=== PATIENT | female | born 1985 | race African-American/Black ===

== ENCOUNTER 2018-02-18 15:25 | Emergency (ER) | payer OTHER ==
[~2018-02-18] VITALS: Ht 170.2 cm; Wt 68.6 kg
[2018-02-18 15:48] VITALS: BP 122/67
[2018-02-18] MEDS ORDERED: PNV1TABL25 PO (15:48)
[2018-02-18] MEDS ORDERED: ONDA4TAB12 PO (16:08)
--- NOTE | 2018-02-18 16:09 | PHYS DOC ---
Past Medical History Past Medical History: No Pertinent History Past Surgical History: Other Additional Past Surgical Histo: breast augmentation Alcohol Use: None Drug Use: None Adult General Chief Complaint Chief Complaint: VOMITING IN HPI HPI Patient is a 32 year old female who presents with shoulder weeks and sees her doctor on 04 March. Patient states that she has nausea and heartburn. Patient states she's only vomited once last 24 hours and she did have 1 bout of diarrhea after eating some postural last night. Patient states she is holding down fluids and food just fine. Patient states she's "just miserable with the nausea and the heartburn". Review of Systems Review of Systems Constitutional: Denies fever or chills [] Eyes: Denies change in visual acuity, redness, or eye pain [] HENT: Denies nasal congestion or sore throat [] Respiratory: Denies cough or shortness of breath [] Cardiovascular: No additional information not addressed in HPI [] GI: Denies abdominal pain. + nausea,+ vomiting, denies bloody stools or diarrhea [] : Denies dysuria or hematuria [] Musculoskeletal: Denies back pain or joint pain [] Integument: Denies rash or skin lesions [] Neurologic: Denies headache, focal weakness or sensory changes [] All other systems were reviewed and found to be within normal limits, except as documented in this note. Current Medications Current Medications Current Medications Medications (Trade) Dose Ordered Sig/[facility] Start Time Stop Time Status Last Admin Dose Admin Ondansetron HCl (Zofran Odt) 4 mg 1X ONCE 02/18/18 16:15 02/18/18 16:16 Allergies Allergies Allergies Coded Allergies Type Severity Reaction Last Updated Verified No Known Drug Allergies 02/18/18 No Physical Exam Physical Exam Constitutional: Well developed, well nourished, no acute distress, non-toxic appearance. [] HENT: Normocephalic, atraumatic, bilateral external ears normal, oropharynx moist, no oral exudates, nose normal. [] Eyes: PERRLA, EOMI, conjunctiva normal, no discharge. [] Neck: Normal range of motion, no tenderness, supple, no stridor. [] Cardiovascular:Heart rate regular rhythm, no murmur [] Lungs & Thorax: Bilateral breath sounds clear to auscultation [] Abdomen: Bowel sounds normal, soft, no tenderness, no masses, no pulsatile masses. [] Skin: Warm, dry, no erythema, no rash. [] Back: No tenderness, no CVA tenderness. [] Extremities: No tenderness, no cyanosis, no clubbing, ROM intact, no edema. [] Neurologic: Alert and oriented X 3, normal motor function, normal sensory function, no focal deficits noted. [] Psychologic: Affect normal, judgement normal, mood normal. [] Current Patient Data Vital Signs Vital Signs Date Time Temp Pulse Resp B/P (MAP) Pulse Ox O2 Delivery O2 Flow Rate FiO2 02/18/18 15:48 98.2 100 20 122/67 (85) 100 Room Air 98.2 EKG EKG [] Radiology/Procedures Radiology/Procedures [] Course & Med Decision Making Course & Med Decision Making Patient is a 32 year old female who presents with shoulder weeks and sees her doctor on 04 March. Patient states that she has nausea and heartburn. Patient states she's only vomited once last 24 hours and she did have 1 bout of diarrhea after eating some postural last night. Patient states she is holding down fluids and food just fine. Patient states she's "just miserable with the nausea and the heartburn". Alert and oriented. Skin pink warm and dry. Mucous membranes are moist. Ambulatory with a steady gait. There is no extremity swelling. She denies any vaginal discharge or bleeding. She denies any abdominal pain. Abdomen is soft and nontender. Afebrile. Vital signs are within normal limits. Patient is given 1 Zofran and a prescription for Zofran to follow-up with her primary care doctor. Janet Disclaimer Janet Disclaimer This electronic medical record was generated, in whole or in part, using a voice recognition dictation system. Departure Departure Impression: Primary Impression: Nausea and vomiting in Disposition: HOME, SELF-CARE Condition: STABLE Referrals: UNKNOWN PCP NAME (PCP) Patient Instructions: ABCs of , Diet for Gastroesophageal Reflux Disease, Adult, Nausea and Vomiting Additional Instructions: Follow up with your OB. Take medication as needed. Try using Zantac or Pepcid for heart burn. Scripts Ondansetron (ONDANSETRON ODT) 4 Mg Tab.rapdis 4 MG PO BID PRN for NAUSEA/VOMITING, #20 TAB Prov: PARIS HARRIS RESOURCE SPECIALIST 02/18/18 PARIS HARRIS APRN Feb 18, 2018 16:09
[2018-02-18] MEDS ORDERED: ONDANSETRON ODT 4 MG TAB.RAPDIS. PO ONE (16:15)
== END 2018-02-18 17:23 | disposition home or self-care (01) ==
LOC: ER 15:25
DX: O21.9 Vomiting of pregnancy, unspecified (principal); R19.7 Diarrhea, unspecified; Z3A.11 11 weeks gestation of pregnancy
CPT/HCPCS: 99283; Q0162

== ENCOUNTER 2018-03-04 09:04 | Emergency (ER) | payer MEDICAID, OTHER ==
[~2018-03-04] VITALS: Ht 170.2 cm; Wt 70.3 kg
[~2018-03-04 09:04] MED LIST: ONDA4TAB12 PO; PNV1TABL25 PO
--- NOTE | 2018-03-04 09:29 | PHYS DOC ---
Past Medical History Past Medical History: No Pertinent History Past Surgical History: Other Additional Past Surgical Histo: breast augmentation Alcohol Use: None Drug Use: None Adult General Chief Complaint Chief Complaint: VOMITING IN [facility] HPI Patient is a 32 year old female with no significant medical history who presents today complaining of nausea and vomiting in . Patient states she doesn't know how far along she is but may be 13 weeks . She's been nauseated for couple days, she states she also been vomiting. She states she called her own PCP to get nausea medicine, she states they told her she has to be seen first before they can write her any medicines for her nausea or vomiting. She states they did not have any appointments today, she states she fired the PCP and will follow up with [facility]. She is requesting nausea medication, she is also requesting an ultrasound to find out how far along she is. Patient denies any abdominal pain, denies any vaginal bleeding. Review of Systems Review of Systems Constitutional: Denies fever or chills [] Eyes: Denies change in visual acuity, redness, or eye pain [] HENT: Denies nasal congestion or sore throat [] Respiratory: Denies cough or shortness of breath [] Cardiovascular: No additional information not addressed in HPI [] GI: Denies abdominal pain, nausea, vomiting, bloody stools or diarrhea [] : Denies dysuria or hematuria [] Musculoskeletal: Denies back pain or joint pain [] Integument: Denies rash or skin lesions [] Neurologic: Denies headache, focal weakness or sensory changes [] Endocrine: Denies polyuria or polydipsia [] All other systems were reviewed and found to be within normal limits, except as documented in this note. Current Medications Current Medications Current Medications Medications (Trade) Dose Ordered Sig/[facility] Start Time Stop Time Status Last Admin Dose Admin Ondansetron HCl (Zofran Odt) 4 mg 1X ONCE 03/04/18 10:00 03/04/18 10:01 DC 03/04/18 09:32 4 MG Allergies Allergies Allergies Coded Allergies Type Severity Reaction Last Updated Verified No Known Drug Allergies 02/18/18 No Physical Exam Physical Exam Constitutional: Well developed, well nourished, no acute distress, non-toxic appearance. [] HENT: Normocephalic, atraumatic, bilateral external ears normal, oropharynx moist, no oral exudates, nose normal. [] Eyes: PERRLA, EOMI, conjunctiva normal, no discharge. [] Neck: Normal range of motion, no tenderness, supple, no stridor. [] Cardiovascular:Heart rate regular rhythm, no murmur [] Lungs & Thorax: Bilateral breath sounds clear to auscultation [] Abdomen: Bowel sounds normal, soft, no tenderness, no masses, no pulsatile masses. [] Skin: Warm, dry, no erythema, no rash. [] Back: No tenderness, no CVA tenderness. [] Extremities: No tenderness, no cyanosis, no clubbing, ROM intact, no edema. [] Neurologic: Alert and oriented X 3, normal motor function, normal sensory function, no focal deficits noted. [] Psychologic: Affect normal, judgement normal, mood normal. [] Current Patient Data Vital Signs Vital Signs Date Time Temp Pulse Resp B/P (MAP) Pulse Ox O2 Delivery O2 Flow Rate FiO2 03/04/18 09:25 98.1 86 18 105/55 (72) 99 Room Air 98.1 Lab Values Laboratory Tests Test 03/04/18 09:10 03/04/18 09:24 Urine Collection Type Unknown Urine Color Yellow Urine Clarity Clear Urine pH 7.0 Urine Specific [place] 1.025 Urine Protein Negative mg/dL (NEG-TRACE) Urine Glucose (UA) Negative mg/dL (NEG) Urine Ketones (Stick) Negative mg/dL (NEG) Urine Blood Negative (NEG) Urine Nitrite Negative (NEG) Urine Bilirubin Negative (NEG) Urine Urobilinogen Dipstick 0.2 mg/dL (0.2 mg/dL) Urine Leukocyte Esterase Small (NEG) Urine RBC 0 /HPF (0-2) Urine WBC Occ /HPF (0-4) Urine Squamous Epithelial Cells Mod /LPF Urine Bacteria 0 /HPF (0-FEW) Urine Mucus Marked /LPF POC Urine HCG, Qualitative Hcg positive (Negative) EKG EKG [] Radiology/Procedures Radiology/Procedures []PROCEDURE: OB < 14 WKS EXAM: Obstetrics sonogram. HISTORY: Pain and vomiting. TECHNIQUE: Sonographic imaging of a gravid uterus was performed. COMPARISON: None. FINDINGS: The uterus measures 12.6 x 9.8 x 9.9 cm. There is an intrauterine gestational sac with views. The crown-rump length is 6.5 cm, corresponding with a gestational age of 12 weeks and 6 days. The gestational sac is normal in configuration and amniotic fluid appears grossly normal in volume. The maternal adnexal regions are obscured due to bowel gas. No subchorionic hematoma is seen. The heart rate is 163 bpm. The IVON is 09/10/2018. IMPRESSION: Single intrauterine fetus with an estimated gestational age of 12 weeks and 6 days and heart rate of 163 bpm. Electronically signed by: Arlin Nguyen MD (03/04/2018 10:35 AM) [facility] DICTATED and SIGNED BY: ARLIN NGUYEN MD DATE: 03/04/18 1032 Course & Med Decision Making Course & Med Decision Making Pertinent Labs and Imaging studies reviewed. (See chart for details) This is a 32-year-old female patient presenting to the ED today with nausea and vomiting in . Patient unable to get into the PCPs office where she follows up for OB care. She is also requesting an ultrasound to see how far along she is. OB ultrasound was noted for Single intrauterine fetus with an estimated gestational age of 12 weeks and 6 days and heart rate of 163 bpm. Urine analysis is noted for UTI, discharged with cephalexin. Discharged with promethazine and Compazine for her nausea/ vomiting. She states she tried Zofran before with minimal relief. Dragon Disclaimer Dragon Disclaimer This electronic medical record was generated, in whole or in part, using a voice recognition dictation system. Departure Departure Impression: Primary Impression: Nausea and vomiting in Additional Impression: Urinary tract infection Disposition: 01 HOME, SELF-CARE Condition: STABLE Referrals: UNKNOWN PCP NAME (PCP) RON MALAVE Jr, MD follow up in 1-2 weeks Patient Instructions: Diet - Hyperemesis Gravidarum, Hyperemesis Gravidarum Additional Instructions: You were evaluated in the emergency room for nausea and vomiting in . Please follow-up with your [facility] as soon as you can. We sent you home with Compazine and promethazine, take them as needed for nausea and vomiting. You also have urinary tract infection, please complete you antibiotics. Come back to the ED at any point symptoms worsen. Scripts Prochlorperazine Maleate (Compazine) 10 Mg Tablet 10 MG PO TID PRN for NAUSEA, #60 TAB Prov: MUTUNGA,TEJAL CREATIVE ARTS THERAPIST 03/04/18 Promethazine Hcl (PROMETHAZINE HCL) 25 Mg Tablet 1 TAB PO PRN Q6HRS, #60 TAB Prov: TEJAL YPLE APRN 03/04/18 Cephalexin (CEPHALEXIN) 500 Mg Tablet 1 TAB PO BID, #14 TAB Prov: TEJAL PYLE APRN 03/04/18 Problem Qualifiers Additional Impression: Urinary tract infection Urinary tract infection type: site unspecified Hematuria presence: without hematuria Qualified Codes: N39.0 - Urinary tract infection, site not specified TEJAL PYLE APRN Mar 04, 2018 09:29
[2018-03-04 09:35] LABS: BILIRUBIN,URINE NEGATIVE (NEG); CLARITY,URINE CLEAR; COLOR,URINE YELLOW; NITRITE,URINE NEGATIVE (NEG); PROTEIN,URINE NEGATIVE (NEG-TRACE); UROBILINOGEN,URINE 0.2 mg/dL (0.2 mg/dL)
[2018-03-04 09:47] LABS: RBC,URINE 0 /HPF (0-2)
[2018-03-04 09:48] LABS: BACTERIA,URINE 0 /HPF (0-FEW); SQUAMOUS EPITHELIAL CELL,UR MOD /LPF; WBC,URINE OCC /HPF (0-4)
[2018-03-04] MEDS ORDERED: ONDANSETRON ODT 4 MG TAB.RAPDIS. PO ONE (10:00)
--- NOTE | 2018-03-04 10:39 | RAD ---
EXAM: Obstetrics sonogram. HISTORY: Pain and vomiting. TECHNIQUE: Sonographic imaging of a gravid uterus was performed. COMPARISON: None. FINDINGS: The uterus measures 12.6 x 9.8 x 9.9 cm. There is an intrauterine gestational sac with views. The crown-rump length is 6.5 cm, corresponding with a gestational age of 12 weeks and 6 days. The gestational sac is normal in configuration and amniotic fluid appears grossly normal in volume. The maternal adnexal regions are obscured due to bowel gas. No subchorionic hematoma is seen. The heart rate is 163 bpm. The IVON is 09/10/2018. IMPRESSION: Single intrauterine fetus with an estimated gestational age of 12 weeks and 6 days and heart rate of 163 bpm. Electronically signed by: Arlin Nguyen MD (03/04/2018 10:35 AM) [facility]
[2018-03-04] MEDS ORDERED: CEPH500T PO (10:48)
[2018-03-04] MEDS ORDERED: PROC10TA57 PO (10:48)
[2018-03-04] MEDS ORDERED: PROM25TA10 PO (10:48)
[2018-03-04 11:00] VITALS: BP 101/56
== END 2018-03-04 11:11 | disposition home or self-care (01) ==
LOC: ER 09:04
DX: O23.41 Unspecified infection of urinary tract in pregnancy, first trimester (principal); Z3A.13 13 weeks gestation of pregnancy
CPT/HCPCS: 76801; 81001; 81025; 87086; 99284; Q0162

== ENCOUNTER 2018-05-03 12:39 | Observation (INO) | payer OTHER ==
[~2018-05-03 12:39] MED LIST changes: +CEPH500T PO; +PROC10TA57 PO; +PROM25TA10 PO
[2018-05-03] MEDS ORDERED: IV RINGERS,LACTATED 1000ML 1,000 ML IV SCH (12:57)
[2018-05-03] MEDS ORDERED: MAG HYDROX/ALUMINUM HYD/SIMETH 30 ML ORAL.SUSP PO PRN (13:00)
[2018-05-03] MEDS ORDERED: ACETAMINOPHEN 325 MG TABLET. PO PRN (13:00)
[2018-05-03] MEDS ORDERED: ONDANSETRON PF 4 MG/2 ML VIAL. IV PRN (13:00)
[2018-05-03 13:21] LABS: BILIRUBIN,URINE NEGATIVE (NEG); CLARITY,URINE CLEAR; COLOR,URINE YELLOW; NITRITE,URINE NEGATIVE (NEG); PH,URINE 7.5; PROTEIN,URINE NEGATIVE (NEG-TRACE); UROBILINOGEN,URINE 0.2 mg/dL (0.2 mg/dL)
[2018-05-03 13:24] LABS: RBC,URINE 0 /HPF (0-2); SQUAMOUS EPITHELIAL CELL,UR MOD /LPF; WBC,URINE OCC /HPF (0-4)
[2018-05-03 13:25] LABS: BACTERIA,URINE FEW /HPF (0-FEW)
[2018-05-03 13:26] LABS: AMPHETAMINE/METHAMPHETAMINE NEG (NEG); BARBITURATES NEG (NEG); BENZODIAZEPINES NEG (NEG); CANNABINOIDS NEG (NEG); COCAINE NEG (NEG); METHADONE NEG (NEG); OPIATES NEG (NEG); PHENCYCLIDINE NEG (NEG)
[2018-05-03] MEDS ORDERED: ACETAMINOPHEN 500 MG TABLET PO ONE (13:45)
[2018-05-03 14:26] LABS: BASO % 0 % (0-3); EOS # 0.4 x10^3/uL (0.0-0.7); EOS % 4 % (0-3); HEMATOCRIT 36.2 % (36.0-47.0); HEMOGLOBIN 11.6 g/dL (12.0-15.5); LYMPH % 10 % (24-48); MEAN CORPUSCULAR HEMOGLOBIN 26 pg (25-35); MEAN CORPUSCULAR HGB CONC 32 g/dL (31-37); MEAN CORPUSCULAR VOLUME 81 fL (79-100); MONO # 0.7 x10^3/uL (0.0-1.1); MONO % 7 % (0-9); NEUT # 7.9 x10^3uL (1.8-7.7); NEUT % 79 % (31-73); PLATELET COUNT 369 x10^3/uL (140-400)
[2018-05-03 16:01] LABS: ALBUMIN 2.5 g/dL (3.4-5.0); ALBUMIN/GLOBULIN RATIO 0.6 (1.0-1.7); CALCIUM 8.7 mg/dL (8.5-10.1); CREATININE 0.4 mg/dL (0.6-1.0); GFR 222.4; POTASSIUM 3.4 mmol/L (3.5-5.1); TOTAL BILIRUBIN 0.2 mg/dL (0.2-1.0); TOTAL PROTEIN 6.8 g/dL (6.4-8.2)
[2018-05-03] MEDS ORDERED: BUTALB/APAP/CAFEIN 50/325/40MG TABLET. PO PRN (16:15)
== END 2018-05-03 17:20 | disposition home or self-care (01) ==
LOC: 3 SO LND 12:39
PROVIDERS: ADMIT Obstetrics & Gynecology; ATTEND Obstetrics & Gynecology
DX: O26.892 Other specified pregnancy related conditions, second trimester (principal); R51 Headache; R05 Cough; O99.512 Diseases of the respiratory system complicating pregnancy, second trimester; J40 Bronchitis, not specified as acute or chronic; J00 Acute nasopharyngitis [common cold]; R09.89 Other specified symptoms and signs involving the circulatory and respiratory systems; Z3A.21 21 weeks gestation of pregnancy
CPT/HCPCS: 36415; 80053; 80307; 81001; 85025; G0378; G0379

== ENCOUNTER 2018-06-01 09:06 | Observation (INO) | payer OTHER ==
[2018-06-01] MEDS ORDERED: ACETAMINOPHEN 325 MG TABLET. PO PRN (09:15)
[2018-06-01] MEDS ORDERED: IV RINGERS,LACTATED 1000ML 1,000 ML IV PRN (09:15)
[2018-06-01] MEDS ORDERED: ONDANSETRON PF 4 MG/2 ML VIAL. IV PRN (09:15)
[2018-06-01] MEDS ORDERED: MAG HYDROX/ALUMINUM HYD/SIMETH 30 ML ORAL.SUSP PO PRN (09:15)
[2018-06-01 09:48] LABS: BILIRUBIN,URINE NEGATIVE (NEG); CLARITY,URINE CLEAR; COLOR,URINE YELLOW; NITRITE,URINE NEGATIVE (NEG); PROTEIN,URINE 30 mg/dL (NEG-TRACE)
[2018-06-01 10:04] LABS: BACTERIA,URINE FEW /HPF (0-FEW); RBC,URINE OCC /HPF (0-2); WBC,URINE OCC /HPF (0-4)
[2018-06-01 10:05] LABS: SQUAMOUS EPITHELIAL CELL,UR MOD /LPF
[2018-06-01 11:09] LABS: POTASSIUM 4.3 mmol/L (3.5-5.1)
[2018-06-01 12:10] LABS: BASO # 0.1 x10^3/uL (0.0-0.2); BASO % 1 % (0-3); EOS # 0.1 x10^3/uL (0.0-0.7); EOS % 1 % (0-3); HEMATOCRIT 31.4 % (36.0-47.0); HEMOGLOBIN 10.2 g/dL (12.0-15.5); LYMPH # 0.8 x10^3/uL (1.0-4.8); LYMPH % 10 % (24-48); MEAN CORPUSCULAR HEMOGLOBIN 26 pg (25-35); MEAN CORPUSCULAR HGB CONC 32 g/dL (31-37); MEAN CORPUSCULAR VOLUME 81 fL (79-100); MONO # 0.5 x10^3/uL (0.0-1.1); MONO % 7 % (0-9); NEUT # 6.6 x10^3uL (1.8-7.7); NEUT % 82 % (31-73); PLATELET COUNT 334 x10^3/uL (140-400); RED BLOOD COUNT 3.88 x10^6/uL (3.50-5.40); RED CELL DISTRIBUTION WIDTH 16.6 % (11.5-14.5); WHITE BLOOD COUNT 8.1 x10^3/uL (4.0-11.0)
== END 2018-06-01 13:43 | disposition home or self-care (01) ==
LOC: 3 SO LND 09:06
PROVIDERS: ADMIT Obstetrics & Gynecology; ATTEND Obstetrics & Gynecology
DX: O21.2 Late vomiting of pregnancy (principal); O26.892 Other specified pregnancy related conditions, second trimester; R42 Dizziness and giddiness; R10.9 Unspecified abdominal pain; Z3A.25 25 weeks gestation of pregnancy
CPT/HCPCS: 36415; 80051; 81001; 85025; 96361; 96374; G0378; G0379; J2405; J7120

== ENCOUNTER 2018-06-09 17:12 | Observation (INO) | payer OTHER ==
[2018-06-09] MEDS ORDERED: IV RINGERS,LACTATED 1000ML 1,000 ML IV SCH (17:29)
[2018-06-09 17:44] LABS: BILIRUBIN,URINE NEGATIVE (NEG); CLARITY,URINE CLEAR; COLOR,URINE YELLOW; NITRITE,URINE NEGATIVE (NEG); PH,URINE 6.5; PROTEIN,URINE NEGATIVE (NEG-TRACE)
[2018-06-09 17:57] LABS: BACTERIA,URINE 0 /HPF (0-FEW); RBC,URINE 0 /HPF (0-2); SQUAMOUS EPITHELIAL CELL,UR MOD /LPF; WBC,URINE 0 /HPF (0-4)
== END 2018-06-09 18:40 | disposition home or self-care (01) ==
LOC: 3 SO LND 17:12
PROVIDERS: ADMIT Obstetrics & Gynecology; ATTEND Obstetrics & Gynecology
DX: O62.9 Abnormality of forces of labor, unspecified (principal); O21.2 Late vomiting of pregnancy; Z3A.26 26 weeks gestation of pregnancy
CPT/HCPCS: 81001; G0379

== ENCOUNTER 2018-10-06 12:26 | Emergency (ER) | payer MEDICAID, OTHER ==
[~2018-10-06] VITALS: Ht 170.2 cm; Wt 72.6 kg
--- NOTE | 2018-10-06 12:52 | RAD ---
3 view study of the third digit right hand Clinical indications: Injury and pain and swelling. FINDINGS: Dorsal soft tissue swelling is seen in the region of the DIP joint and distal phalanx. No radio-opaque foreign body is seen. No acute fracture or dislocation or lytic process evident. IMPRESSION: No acute fracture. Electronically signed by: Teddy Garcia MD (10/06/2018 12:49 PM) [id number]
[2018-10-06 13:05] VITALS: BP 115/72
--- NOTE | 2018-10-06 13:23 | PHYS DOC ---
Past Medical History Past Medical History: No Pertinent History Past Surgical History: Other Additional Past Surgical Histo: breast augmentation Alcohol Use: None Drug Use: None Adult General Chief Complaint Chief Complaint: FINGER INJURY HPI HPI Patient is a 32 year old female who presents with right middle finger injury, patient states she got to the right middle finger pinched in a car seat on Thursday. She states this morning she woke up on the finger is swollen. Review of Systems Review of Systems Constitutional: Denies fever or chills [] Musculoskeletal: Denies back pain or joint pain [] Integument: Reports right middle finger injury Neurologic: Denies headache, focal weakness or sensory changes [] All other systems were reviewed and found to be within normal limits, except as documented in this note. Allergies Allergies Allergies Coded Allergies Type Severity Reaction Last Updated Verified No Known Drug Allergies 02/18/18 No Physical Exam Physical Exam Constitutional: Well developed, well nourished, no acute distress, non-toxic appearance. [] Skin: Right middle finger nailbed with moderate swelling and erythema consistent with paronychia. There is fluctuance to this region. Full range of motion to the right middle finger. Adequate sensation to the right middle finger. +2 right radial pulse. Cap refill less than 2 seconds the right middle finger Back: No tenderness, no CVA tenderness. [] Extremities: No tenderness, no cyanosis, no clubbing, ROM intact, no edema. [] Neurologic: Alert and oriented X 3, normal motor function, normal sensory function, no focal deficits noted. [] Psychologic: Affect normal, judgement normal, mood normal. [] Current Patient Data Vital Signs Vital Signs Date Time Temp Pulse Resp B/P (MAP) Pulse Ox O2 Delivery O2 Flow Rate FiO2 10/06/18 13:05 97.7 78 16 115/72 (86) 99 Room Air 97.7 EKG EKG [] Radiology/Procedures Radiology/Procedures []PROCEDURE: FINGER(S) RIGHT 3 view study of the third digit right hand Clinical indications: Injury and pain and swelling. FINDINGS: Dorsal soft tissue swelling is seen in the region of the DIP joint and distal phalanx. No radio-opaque foreign body is seen. No acute fracture or dislocation or lytic process evident. IMPRESSION: No acute fracture. Electronically signed by: Robert Garcia MD (10/06/2018 12:49 PM) [id number] DICTATED and SIGNED BY: ROBERT GARCIA MD DATE: 10/06/18 1249 Indication: Paronychia right middle finger Procedure: The patient was positioned appropriately. Local anesthesia was not applicable. An incision was then made over the apex of the lesion with an 11 blade and moderate amount of yellow bloody material was expressed. The drainage cavity was irrigated and covered with sterile gauze. The patient�s tetanus status updated as needed. The patient tolerated the procedure well. Complications: none. Course & Med Decision Making Course & Med Decision Making Pertinent Labs and Imaging studies reviewed. (See chart for details) This is a 32-year-old female patient who presents to the ED today with paronychia of the right middle finger that began after she pinched her right middle finger in a car seat. Right middle finger x-rays interpreted by radiologist are negative for any acute findings. Paronychia was drained by me as noted in procedures. Tetanus is up-to-date. Patient is breast-feeding. Discharged with cephalexin. Wound care instructions and return precautions provided. Dragon Disclaimer Dragon Disclaimer This electronic medical record was generated, in whole or in part, using a voice recognition dictation system. Departure Departure Impression: Primary Impression: Paronychia of right middle finger Disposition: 01 HOME, SELF-CARE Condition: STABLE Referrals: UNKNOWN PCP NAME (PCP) follow up with your doctor in 1-2 weeks Patient Instructions: Paronychia, [id number] Additional Instructions: You have right middle finger infection, as discussed consider removing the nail japanese from the right middle finger. Soak the right middle finger in Warm water with Epsom salts twice a day. Complete the prescribed antibiotics. Follow-up with your own doctor in 1-2 weeks. Scripts Cephalexin (CEPHALEXIN) 500 Mg Capsule 1 CAP PO TID, #30 CAP Prov: TEJAL PYLE APRN 10/06/18 TEJAL PYLE APRN Oct 06, 2018 13:23
[2018-10-06] MEDS ORDERED: CEPH500C PO (13:31)
== END 2018-10-06 13:55 | disposition home or self-care (01) ==
LOC: ER 12:26
DX: L03.011 Cellulitis of right finger (principal)
CPT/HCPCS: 10060; 73140; 99283; 99284

== ENCOUNTER 2021-02-04 09:05 | Emergency (ER) | payer MEDICAID ==
[~2021-02-04] VITALS: Ht 170.2 cm; Wt 66.8 kg
[~2021-02-04 09:05] MED LIST changes: +CEPH500C PO
[2021-02-04 09:38] VITALS: BP 110/63
[2021-02-04 10:55] LABS: INFLUENZA A PATIENT NEGATIVE (NEGATIVE); INFLUENZA B PATIENT NEGATIVE (NEGATIVE)
--- NOTE | 2021-02-04 11:06 | PHYS DOC ---
Past Medical History Past Medical History: No Pertinent History Past Surgical History: Other Additional Past Surgical Histo: breast augmentation Smoking Status: Never Smoker Alcohol Use: None Drug Use: None General Adult EDM: Chief Complaint: FLU SYMPTOM HPI: HPI: Patient is a 35 year old female without pertinent past medical history who presents with runny nose, cough, sore throat, body aches. Symptoms started on 01/26 and have been persistent since. Briefly lost her taste/smell, but this seems to have returned. Several close contacts have tested positive for Covid in the past week. Has had some night sweats, but no outright fever/chills. She has not received Covid vaccine Denies chest pain, shortness of breath. Review of Systems: Review of Systems: Constitutional: Denies fever or chills. Reports night sweats. [] Eyes: Denies change in visual acuity. [] HENT: Reports nasal congestion, runny nose, sore throat. Respiratory: Denies cough or shortness of breath. [] Cardiovascular: Denies chest pain or edema. [] GI: Denies abdominal pain, nausea, vomiting, bloody stools or diarrhea. [] : Denies dysuria. [] Musculoskeletal: Reports diffuse muscle aches Integument: Denies rash. [] Psychiatric: Denies depression or anxiety. [] Heart Score: C/O Chest Pain: No Allergies: Allergies: Allergies Coded Allergies Type Severity Reaction Last Updated Verified No Known Drug Allergies 02/18/18 No Physical Exam: PE: Constitutional: Well developed, well nourished, no acute distress, non-toxic appearance. [] HENT: Normocephalic, atraumatic Neck: Normal range of motion, no tenderness, supple, no stridor. [] Cardiovascular:Heart rate regular rhythm, no murmur [] Lungs & Thorax: Normal work of breathing. Bilateral breath sounds clear to auscultation [] Abdomen: Bowel sounds normal, soft, no tenderness, no masses, no pulsatile masses. [] Skin: Warm, dry, no erythema, no rash. [] Back: No tenderness, no CVA tenderness. [] Extremities: No tenderness, no cyanosis, no clubbing, ROM intact, no edema. [] Neurologic: Alert and oriented X 3, normal motor function, normal sensory function, no focal deficits noted. [] Psychologic: Affect normal, judgement normal, mood normal. [] Current Patient Data: Labs: Laboratory Tests Test 02/04/21 10:15 Influenza Type A Antigen Negative (NEGATIVE) Influenza Type B Antigen Negative (NEGATIVE) SARS-CoV-2 Antigen (Rapid) Negative (NEGATIVE) Vital Signs: Vital Signs Date Time Temp Pulse Resp B/P (MAP) Pulse Ox O2 Delivery O2 Flow Rate FiO2 02/04/21 09:38 98.2 81 16 110/63 (79) 100 Room Air 98.2 EKG: EKG: [] Radiology/Procedures: Radiology/Procedures: [] Course & Med Decision Making: Course & Med Decision Making Pertinent Labs and Imaging studies reviewed. (See chart for details) Patient 35-year-old female without pertinent past medical history presents with cough, runny nose, sore throat, body aches, loss of taste/smell since 01/26. She is unvaccinated, and has had several close exposures in the past week to Covid. On arrival is afebrile, with normal vital signs. Satting 1 high percent on room air. Auscultatory exam is clear. Do not feel she would benefit from chest x- ray at this time. Covid and influenza rapid test are negative. I have a high suspicion for Covid despite the negative test given her exposures and symptom complex. I have advised her to self isolate at minimum until PCR is resulted in for at least 10 days since symptom onset with at least 3 days of improving symptoms and no fever/chills. Janet Disclaimer: Janet Disclaimer: This electronic medical record was generated, in whole or in part, using a voice recognition dictation system. Departure Departure Impression: Primary Impression: Person under investigation for COVID-19 Disposition: 01 HOME / SELF CARE / HOMELESS Condition: STABLE Referrals: NO PCP (PCP) Additional Instructions: Your rapid Covid and influenza test are negative. As we discussed, the rapid Covid test have a high probability of false negatives. Please self isolate at least until you know the results of your PCR test, which should be available tomorrow. You should receive a call if your test is positive, however sometimes these follow-up cost can be missed. Please call tomorrow if you have not heard from us by noon to learn the results of your test. You should self isolate for a minimum of 10 days since your symptoms started (02/05), and have at least 3 days without fever/chills and significant improvement in your symptoms before ending your isolation. If you develop shortness of breath, chest pain, or other new/concerning symptoms please return to the emergency department for evaluation. For fever or body aches tylenol and ibuprofen are best used on a schedule. Please alternate between the two. -Tylenol 1000 mg every 6 hours (do not exceed 4000 mg in one day) -Ibuprofen 400 mg every 6 hours. Take with food. Do not take for more than 1 week. MADHU MOLINA MD Feb 04, 2021 11:05
--- NOTE | 2021-02-05 15:02 | NUR ---
IP: Informed pt of negative covid test. Pt verbalized understanding.
== END 2021-02-04 11:22 | disposition home or self-care (01) ==
LOC: ER 09:05
DX: R05.9 Cough, unspecified (principal); Z20.822 Contact with and (suspected) exposure to COVID-19; J02.9 Acute pharyngitis, unspecified; R09.89 Other specified symptoms and signs involving the circulatory and respiratory systems; M79.10 Myalgia, unspecified site
CPT/HCPCS: 87426; 87804; 99283; U0003; U0005